=== PATIENT | male | born 1965 | race Caucasian/White ===

== ENCOUNTER 2016-06-19 09:25 | Emergency (ER) | payer BC ==
[~2016-06-19] VITALS: Ht 188 cm; Wt 107.0 kg
[2016-06-19 09:27] VITALS: BP 160/105; PULSE 91; RESP 16; TEMP 97.9; O2SAT 95
[2016-06-19] MEDS ORDERED: NEUR300C PO (09:58)
[2016-06-19] MEDS ORDERED: PERC10TA27 PO (09:58)
[2016-06-19] MEDS ORDERED: DIOV80TA4 PO (09:58)
[2016-06-19] MEDS ORDERED: COUM3TAB PO (09:58)
[2016-06-19] MEDS ORDERED: ACETAMINOPHEN 500 MG CPLT PO ONE (10:15)
[2016-06-19] MEDS ORDERED: DEXAMETHASONE SOD PHOS 20 MG/5 ML VIAL IM ONE (10:15)
[2016-06-19] MEDS ORDERED: ORPHENADRINE INJ 60 MG/2 ML AMP IM ONE (10:15)
--- NOTE | 2016-06-19 10:16 | PD ---
HPI Chief Complaint: Pain: Acute or Chronic Time Seen by Provider: 10:10 Travel History International Travel<30 days: No Contact w/Intl Traveler<30days: No Traveled to known affect area: No History of Present Illness HPI Patient is a 50-year-old male presented to emergency room for evaluation of left shoulder pain. Patient states the pain started several months ago when he lifted heavy pack of shingles at work, he was given a joint injection by his primary doctor and has been fine since that time. Patient is here for bike week and reports no new injury but states likely secondary to riding his motorcycle his shoulder pain returned. Patient reports the pain is a 6 out of 10. He does report tingling but denies any weakness. Patient states he was told by his primary care provider that he has a pinched nerve in his shoulder. He is past medical history includes hypertension and DVT, he is currently on Coumadin. PFSH Past Medical History Hx Anticoagulant Therapy: Yes Hypertension: Yes Social History Alcohol Use: Yes Tobacco Use: No Substance Use: No Allergies-Medications (Allergen,Severity, Reaction): Coded Allergies: No Known Allergies (Unverified , 06/19/16) Reported Meds & Prescriptions Reported Meds & Active Scripts Active Flexeril (Cyclobenzaprine HCl) 10 Mg Tab 10 Mg PO TID PRN 7 Days Prednisone 50 Mg Tab 50 Mg PO DAILY Reported Neurontin (Gabapentin) 300 Mg Cap 300 Mg PO DAILY Coumadin (Warfarin) 3 Mg Tab 3 Mg PO DAILY Diovan (Valsartan) 80 Mg Tab 80 Mg PO DAILY Percocet (Oxycodone-Acetaminophen) 10-325 mg Tab 1 Tab PO Q6H PRN Review of Systems Except as stated in HPI: all other systems reviewed are Neg HENT: No: Headaches Cardiovascular: No: Chest Pain or Discomfort Respiratory: No: Shortness of Breath Gastrointestinal: No: Nausea, Abdominal Pain Musculoskeletal: Positive: Myalgias, Pain, No: Limited ROM, Edema Skin: No Change in Pigmentation Neurologic: Positive: Sensory Disturbance Physical Exam Narrative GENERAL: Well-developed, well-nourished, alert male. Resting comfortably in no acute distress. SKIN: Warm and dry. HEAD: Atraumatic. Normocephalic. EYES: Pupils equal and round. No scleral icterus. No injection or drainage. ENT: No nasal bleeding or discharge. Mucous membranes pink and moist. NECK: Trachea midline. No JVD. CARDIOVASCULAR: Regular rate and rhythm. No murmur appreciated. RESPIRATORY: No accessory muscle use. Clear to auscultation. Breath sounds equal bilaterally. GASTROINTESTINAL: Abdomen soft, non-tender, nondistended. Hepatic and splenic margins not palpable. MUSCULOSKELETAL: No obvious deformities. No clubbing. No cyanosis. No edema. Full range of motion and left shoulder. 5/5 muscle strength in bilateral upper extremities. Positive radial pulse, brisk as a 3 second capillary refill. Tender point on palpation to the posterior aspect of left shoulder joint. NEUROLOGICAL: Awake and alert. No obvious cranial nerve deficits. Motor grossly within normal limits. Normal speech. PSYCHIATRIC: Appropriate mood and affect; insight and judgment normal. Data Data Last Documented VS Vital Signs Date Time Temp Pulse Resp B/P Pulse Ox O2 Delivery O2 Flow Rate FiO2 06/19/16 09:27 97.9 91 16 160/105 95 Orders Orphenadrine Inj (Norflex Inj) (06/19/16 10:15) Dexamethasone Inj (Decadron Inj) (06/19/16 10:15) Acetaminophen (Tylenol) (06/19/16 10:15) [facility] Medical Decision Making Medical Screen Exam Complete: Yes Emergency Medical Condition: Yes Interpretation(s) Vital Signs Date Time Temp Pulse Resp B/P Pulse Ox O2 Delivery O2 Flow Rate FiO2 06/19/16 09:27 97.9 91 16 160/105 95 Differential Diagnosis Sprain versus strain versus discogenic pain versus spasm versus tendinitis Narrative Course Patient is a 50-year-old male presenting to the emergency evaluation of left shoulder pain. Patient has a history of the same pain several months ago and received a cortisone injection which relieved his symptoms until this week. Patient is neurologically and neurovascularly intact, he has full range of motion of left shoulder and his strong against resistance. Patient will be given injection of dexamethasone and Norflex as well as oral acetaminophen. Will reassess. Patient reports a mild improvement in his symptoms. He was advised to alternate heat and ice to affected area, continue range of motion exercises, avoid exacerbating activities. He was advised to follow-up with his primary doctor upon return home Saturday. He was encouraged to return to emergency department for any new or worsening symptoms. Patient verbalized understanding of these instructions. Patient stable for discharge. Diagnosis Primary Impression: Shoulder pain Qualified Code: M25.512 - Left shoulder pain, unspecified chronicity Referrals: Primary Care Physician 1 week Patient Instructions: General Instructions, Shoulder Pain (ED) Additional Instructions: Follow-up with your primary doctor Take medications as directed Flexeril may make you drowsy, do not drive or operate machinery until you know how you react to this medication Apply warm moist heat to affected area, continue range of motion exercises, avoid bed rest, avoid exacerbating activities Take [id number] acetaminophen as needed and as directed for pain Return to the emergency department for any new or worsening symptoms Med/Other Pt SpecificInfo: Prescription(s) given Scripts Cyclobenzaprine (Flexeril)10 Mg Tab10 Mg PO TID PRN (MUSCLE SPASM) 7 Days Ref 0 Prov:Delores Manuel 06/19/16 Prednisone 50 Mg Tab50 Mg PO DAILY #5 TAB Ref 0 Prov:Delores Manuel 06/19/16 Disposition: 01 DISCHARGE HOME Condition: Stable Delores Manuel Jun 19, 2016 10:16
[2016-06-19] MEDS ORDERED: CYCL1TAB29 PO (10:37)
[2016-06-19] MEDS ORDERED: PRED50 PO (10:37)
== END 2016-06-19 11:01 | disposition home or self-care (01) ==
LOC: NEPB 09:25
DX: M25.512 Pain in left shoulder (principal); I10 Essential (primary) hypertension; Z79.01 Long term (current) use of anticoagulants
CPT/HCPCS: 96372; 99282; J1100; J2360